=== PATIENT | female | born 1990 | race Caucasian/White ===

== ENCOUNTER 2024-02-15 12:42 | Emergency (ER) | payer MEDICAID, OTHER ==
[~2024-02-15] VITALS: Ht 162.6 cm; Wt 5.3 kg
[2024-02-15 15:14] VITALS: BP 133/91; PULSE 90; RESP 16; TEMP 97.9; O2SAT 96
== END 2024-02-15 15:21 | disposition home or self-care (01) ==
LOC: ER 12:42
DX: R10.2 Pelvic and perineal pain (principal); Z32.02 Encounter for pregnancy test, result negative
CPT/HCPCS: 36415; 81025; 84702